=== PATIENT | male | born 1970 | race American Indian/Alaskan Native ===

== ENCOUNTER 2018-08-26 10:09 | Outpatient (CLI) | payer MEDICARE | END 2018-08-26 10:10 | disposition home or self-care (01) | LOC: WOUND 10:09 | PROVIDERS: ATTEND Surgery | DX: E11.621 Type 2 diabetes mellitus with foot ulcer (principal); L97.526 Non-pressure chronic ulcer of other part of left foot with bone involvement without evidence of necrosis; L97.512 Non-pressure chronic ulcer of other part of right foot with fat layer exposed; L84 Corns and callosities; E11.610 Type 2 diabetes mellitus with diabetic neuropathic arthropathy; E11.69 Type 2 diabetes mellitus with other specified complication; M86.672 Other chronic osteomyelitis, left ankle and foot; M86.671 Other chronic osteomyelitis, right ankle and foot; I10 Essential (primary) hypertension | CPT/HCPCS: 11042; 11045; 87075; 87116; G0463; 87076; 87186; 99205 ==

== ENCOUNTER 2018-09-02 10:30 | Outpatient (CLI) | payer MEDICARE ==
--- NOTE | 2018-09-02 11:08 | XRay Report ---
ROUTINE CHEST, TWO VIEWS: HISTORY: Type 2 diabetes mellitus with skin complications. The trachea, heart, mediastinal contour, lung wood and bony thorax are unremarkable. IMPRESSION: Unremarkable chest x-ray.
== END 2018-09-02 10:31 | disposition home or self-care (01) ==
LOC: XRAY 10:30
PROVIDERS: ATTEND Surgery
DX: E11.621 Type 2 diabetes mellitus with foot ulcer (principal); M86.672 Other chronic osteomyelitis, left ankle and foot
CPT/HCPCS: 71046

== ENCOUNTER 2018-09-02 10:56 | Outpatient (CLI) | payer MEDICARE | END 2018-09-02 10:57 | disposition home or self-care (01) | LOC: WOUND 10:56 | CPT/HCPCS: 71046 ==

== ENCOUNTER 2018-09-09 10:05 | Outpatient (CLI) | payer MEDICARE ==
[2018-09-09] MEDS ORDERED: SILVER NITRATE TP ONE (13:46)
[2018-09-09] MEDS ORDERED: XYLOCAINE TOPICAL 4% TP ONE (13:46)
== END 2018-09-09 10:06 | disposition home or self-care (01) ==
LOC: WOUND 10:05
PROVIDERS: ATTEND Surgery
DX: E11.621 Type 2 diabetes mellitus with foot ulcer (principal); L97.522 Non-pressure chronic ulcer of other part of left foot with fat layer exposed; E11.69 Type 2 diabetes mellitus with other specified complication; M86.372 Chronic multifocal osteomyelitis, left ankle and foot; E11.610 Type 2 diabetes mellitus with diabetic neuropathic arthropathy; I10 Essential (primary) hypertension
CPT/HCPCS: 11042; 11045; 82962; G0277; 99183

== ENCOUNTER 2018-09-10 10:04 | Outpatient (CLI) | payer MEDICARE | END 2018-09-10 10:05 | disposition home or self-care (01) | LOC: WOUND 10:04 | PROVIDERS: ATTEND Surgery | DX: E11.621 Type 2 diabetes mellitus with foot ulcer (principal); L97.521 Non-pressure chronic ulcer of other part of left foot limited to breakdown of skin; I10 Essential (primary) hypertension | CPT/HCPCS: 82962; G0277; 99183 ==

== ENCOUNTER 2018-09-12 10:31 | Outpatient (CLI) | payer MEDICARE | END 2018-09-12 10:32 | disposition home or self-care (01) | LOC: WOUND 10:31 | PROVIDERS: ATTEND Surgery | DX: E11.621 Type 2 diabetes mellitus with foot ulcer (principal); L97.521 Non-pressure chronic ulcer of other part of left foot limited to breakdown of skin; E11.69 Type 2 diabetes mellitus with other specified complication; M86.672 Other chronic osteomyelitis, left ankle and foot; I10 Essential (primary) hypertension | CPT/HCPCS: 82962; G0277; 99183 ==

== ENCOUNTER 2018-09-13 10:20 | Outpatient (CLI) | payer MEDICARE | END 2018-09-13 10:21 | disposition home or self-care (01) | LOC: WOUND 10:20 | PROVIDERS: ATTEND Surgery | DX: E11.621 Type 2 diabetes mellitus with foot ulcer (principal); L97.521 Non-pressure chronic ulcer of other part of left foot limited to breakdown of skin; E11.69 Type 2 diabetes mellitus with other specified complication; M86.672 Other chronic osteomyelitis, left ankle and foot; I10 Essential (primary) hypertension | CPT/HCPCS: 82962; G0277; 99183 ==

== ENCOUNTER 2018-09-16 10:42 | Outpatient (CLI) | payer MEDICARE ==
[2018-09-16] MEDS ORDERED: XYLOCAINE TOPICAL 4% TP ONE (13:13)
== END 2018-09-16 10:43 | disposition home or self-care (01) ==
LOC: WOUND 10:42
PROVIDERS: ATTEND Surgery
DX: E11.621 Type 2 diabetes mellitus with foot ulcer (principal); L97.522 Non-pressure chronic ulcer of other part of left foot with fat layer exposed; E11.69 Type 2 diabetes mellitus with other specified complication; M86.372 Chronic multifocal osteomyelitis, left ankle and foot; E11.610 Type 2 diabetes mellitus with diabetic neuropathic arthropathy; I10 Essential (primary) hypertension
CPT/HCPCS: 11042; 11045; 82962; 97605; G0277; 99183

== ENCOUNTER 2018-09-17 10:01 | Outpatient (CLI) | payer MEDICARE | END 2018-09-17 10:02 | disposition home or self-care (01) | LOC: WOUND 10:01 | PROVIDERS: ATTEND Surgery | DX: E11.621 Type 2 diabetes mellitus with foot ulcer (principal); L97.522 Non-pressure chronic ulcer of other part of left foot with fat layer exposed; E11.69 Type 2 diabetes mellitus with other specified complication; M86.372 Chronic multifocal osteomyelitis, left ankle and foot; E11.610 Type 2 diabetes mellitus with diabetic neuropathic arthropathy; I10 Essential (primary) hypertension | CPT/HCPCS: 82962; G0277; 99183 ==

== ENCOUNTER 2018-09-18 09:47 | Outpatient (CLI) | payer MEDICARE | END 2018-09-18 09:48 | disposition home or self-care (01) | LOC: WOUND 09:47 | PROVIDERS: ATTEND Surgery | DX: E11.621 Type 2 diabetes mellitus with foot ulcer (principal); L97.511 Non-pressure chronic ulcer of other part of right foot limited to breakdown of skin; E11.69 Type 2 diabetes mellitus with other specified complication; M86.372 Chronic multifocal osteomyelitis, left ankle and foot; E11.610 Type 2 diabetes mellitus with diabetic neuropathic arthropathy; I10 Essential (primary) hypertension | CPT/HCPCS: 82962; G0277; 99183 ==

== ENCOUNTER 2018-09-19 09:42 | Outpatient (CLI) | payer MEDICARE | END 2018-09-19 09:43 | disposition home or self-care (01) | LOC: WOUND 09:42 | PROVIDERS: ATTEND Surgery | DX: E11.621 Type 2 diabetes mellitus with foot ulcer (principal); L97.522 Non-pressure chronic ulcer of other part of left foot with fat layer exposed; E11.69 Type 2 diabetes mellitus with other specified complication; M86.372 Chronic multifocal osteomyelitis, left ankle and foot; E11.610 Type 2 diabetes mellitus with diabetic neuropathic arthropathy; I10 Essential (primary) hypertension | CPT/HCPCS: 82962; G0277; 99183 ==

== ENCOUNTER 2018-09-20 07:54 | Outpatient (CLI) | payer MEDICARE | END 2018-09-20 07:55 | disposition home or self-care (01) | LOC: WOUND 07:54 | PROVIDERS: ATTEND Surgery | DX: E11.621 Type 2 diabetes mellitus with foot ulcer (principal); L97.522 Non-pressure chronic ulcer of other part of left foot with fat layer exposed; E11.69 Type 2 diabetes mellitus with other specified complication; M86.372 Chronic multifocal osteomyelitis, left ankle and foot; E11.610 Type 2 diabetes mellitus with diabetic neuropathic arthropathy; I10 Essential (primary) hypertension | CPT/HCPCS: 82962; 99183; G0277 ==

== ENCOUNTER 2018-09-23 08:06 | Outpatient (CLI) | payer MEDICARE | END 2018-09-23 08:07 | disposition home or self-care (01) | LOC: WOUND 08:06 | PROVIDERS: ATTEND Surgery | DX: E11.621 Type 2 diabetes mellitus with foot ulcer (principal); L97.522 Non-pressure chronic ulcer of other part of left foot with fat layer exposed; L84 Corns and callosities; E11.69 Type 2 diabetes mellitus with other specified complication; M86.372 Chronic multifocal osteomyelitis, left ankle and foot; E11.610 Type 2 diabetes mellitus with diabetic neuropathic arthropathy; I10 Essential (primary) hypertension; S91.301A Unspecified open wound, right foot, initial encounter; X58.XXXA Exposure to other specified factors, initial encounter; Y93.89 Activity, other specified; Y92.89 Other specified places as the place of occurrence of the external cause; Y99.8 Other external cause status | CPT/HCPCS: 11042; 11045; 82962; 97605; G0277; 99183 ==

== ENCOUNTER 2018-09-24 08:03 | Outpatient (CLI) | payer MEDICARE | END 2018-09-24 08:04 | disposition home or self-care (01) | LOC: WOUND 08:03 | PROVIDERS: ATTEND Surgery | DX: E11.621 Type 2 diabetes mellitus with foot ulcer (principal); L97.511 Non-pressure chronic ulcer of other part of right foot limited to breakdown of skin; E11.610 Type 2 diabetes mellitus with diabetic neuropathic arthropathy; E11.69 Type 2 diabetes mellitus with other specified complication; M86.372 Chronic multifocal osteomyelitis, left ankle and foot; I10 Essential (primary) hypertension | CPT/HCPCS: 82962; G0277; 99183 ==

== ENCOUNTER 2018-09-25 07:49 | Outpatient (CLI) | payer MEDICARE | END 2018-09-25 07:50 | disposition home or self-care (01) | LOC: WOUND 07:49 | PROVIDERS: ATTEND Surgery | DX: E11.621 Type 2 diabetes mellitus with foot ulcer (principal); L97.811 Non-pressure chronic ulcer of other part of right lower leg limited to breakdown of skin; E11.69 Type 2 diabetes mellitus with other specified complication; M86.372 Chronic multifocal osteomyelitis, left ankle and foot; E11.610 Type 2 diabetes mellitus with diabetic neuropathic arthropathy; I10 Essential (primary) hypertension | CPT/HCPCS: 82962; G0277; 99183 ==

== ENCOUNTER 2018-09-26 07:50 | Outpatient (CLI) | payer MEDICARE | END 2018-09-26 07:51 | disposition home or self-care (01) | LOC: WOUND 07:50 | PROVIDERS: ATTEND Surgery | DX: E11.621 Type 2 diabetes mellitus with foot ulcer (principal); L97.511 Non-pressure chronic ulcer of other part of right foot limited to breakdown of skin; E11.69 Type 2 diabetes mellitus with other specified complication; M86.372 Chronic multifocal osteomyelitis, left ankle and foot; E11.610 Type 2 diabetes mellitus with diabetic neuropathic arthropathy; I10 Essential (primary) hypertension | CPT/HCPCS: 82962; G0277; 99183 ==

== ENCOUNTER 2018-09-27 07:37 | Outpatient (CLI) | payer MEDICARE | END 2018-09-27 07:38 | disposition home or self-care (01) | LOC: WOUND 07:37 | PROVIDERS: ATTEND Surgery | DX: E11.621 Type 2 diabetes mellitus with foot ulcer (principal); L97.511 Non-pressure chronic ulcer of other part of right foot limited to breakdown of skin; E11.69 Type 2 diabetes mellitus with other specified complication; M86.372 Chronic multifocal osteomyelitis, left ankle and foot; E11.610 Type 2 diabetes mellitus with diabetic neuropathic arthropathy; I10 Essential (primary) hypertension | CPT/HCPCS: 82962; G0277; 99183 ==

== ENCOUNTER 2018-09-30 07:38 | Outpatient (CLI) | payer MEDICARE | END 2018-09-30 07:39 | disposition home or self-care (01) | LOC: WOUND 07:38 | PROVIDERS: ATTEND Surgery | DX: E11.621 Type 2 diabetes mellitus with foot ulcer (principal); L97.522 Non-pressure chronic ulcer of other part of left foot with fat layer exposed; L84 Corns and callosities; S91.301D Unspecified open wound, right foot, subsequent encounter; E11.69 Type 2 diabetes mellitus with other specified complication; M86.372 Chronic multifocal osteomyelitis, left ankle and foot; E11.610 Type 2 diabetes mellitus with diabetic neuropathic arthropathy; I10 Essential (primary) hypertension; X58.XXXD Exposure to other specified factors, subsequent encounter | CPT/HCPCS: 11042; 11045; 87075; 87116; 97605; G0277; 82962; 99183 ==

== ENCOUNTER 2018-10-01 07:49 | Outpatient (CLI) | payer MEDICARE | END 2018-10-01 07:50 | disposition home or self-care (01) | LOC: WOUND 07:49 | PROVIDERS: ATTEND Surgery | DX: E11.621 Type 2 diabetes mellitus with foot ulcer (principal); L97.511 Non-pressure chronic ulcer of other part of right foot limited to breakdown of skin; E11.69 Type 2 diabetes mellitus with other specified complication; M86.372 Chronic multifocal osteomyelitis, left ankle and foot; E11.610 Type 2 diabetes mellitus with diabetic neuropathic arthropathy; I10 Essential (primary) hypertension | CPT/HCPCS: 82962; 99183; G0277 ==

== ENCOUNTER 2018-10-02 07:51 | Outpatient (CLI) | payer MEDICARE | END 2018-10-02 07:52 | disposition home or self-care (01) | LOC: WOUND 07:51 | PROVIDERS: ATTEND Surgery | DX: E11.621 Type 2 diabetes mellitus with foot ulcer (principal); L97.511 Non-pressure chronic ulcer of other part of right foot limited to breakdown of skin; E11.69 Type 2 diabetes mellitus with other specified complication; M86.372 Chronic multifocal osteomyelitis, left ankle and foot; E11.610 Type 2 diabetes mellitus with diabetic neuropathic arthropathy; I10 Essential (primary) hypertension | CPT/HCPCS: 82962; G0277; 99183 ==

== ENCOUNTER 2018-10-03 07:50 | Outpatient (CLI) | payer MEDICARE | END 2018-10-03 07:51 | disposition home or self-care (01) | LOC: WOUND 07:50 | PROVIDERS: ATTEND Surgery | DX: E11.621 Type 2 diabetes mellitus with foot ulcer (principal); L97.511 Non-pressure chronic ulcer of other part of right foot limited to breakdown of skin; E11.69 Type 2 diabetes mellitus with other specified complication; M86.372 Chronic multifocal osteomyelitis, left ankle and foot; E11.610 Type 2 diabetes mellitus with diabetic neuropathic arthropathy; I10 Essential (primary) hypertension | CPT/HCPCS: 82962; G0277; 99183 ==

== ENCOUNTER 2018-10-07 08:09 | Outpatient (CLI) | payer MEDICARE ==
[2018-10-07] MEDS ORDERED: XYLOCAINE TOPICAL 4% TP ONE (12:00)
[2018-10-08] MEDS ORDERED: AD OINTMENT TP SCH (10:00)
== END 2018-10-07 08:10 | disposition home or self-care (01) ==
LOC: WOUND 08:09
PROVIDERS: ATTEND Surgery
DX: E11.621 Type 2 diabetes mellitus with foot ulcer (principal); L97.522 Non-pressure chronic ulcer of other part of left foot with fat layer exposed; E11.69 Type 2 diabetes mellitus with other specified complication; M86.372 Chronic multifocal osteomyelitis, left ankle and foot; E11.610 Type 2 diabetes mellitus with diabetic neuropathic arthropathy; I10 Essential (primary) hypertension
CPT/HCPCS: 11042; 11045; 82962; G0277; 99183

== ENCOUNTER 2018-10-08 07:55 | Outpatient (CLI) | payer MEDICARE | END 2018-10-08 07:56 | disposition home or self-care (01) | LOC: WOUND 07:55 | PROVIDERS: ATTEND Surgery | DX: E11.621 Type 2 diabetes mellitus with foot ulcer (principal); L97.511 Non-pressure chronic ulcer of other part of right foot limited to breakdown of skin; E11.69 Type 2 diabetes mellitus with other specified complication; M86.372 Chronic multifocal osteomyelitis, left ankle and foot; E11.610 Type 2 diabetes mellitus with diabetic neuropathic arthropathy; I10 Essential (primary) hypertension | CPT/HCPCS: 82962; G0277; 99183 ==

== ENCOUNTER 2018-10-09 07:46 | Outpatient (CLI) | payer MEDICARE | END 2018-10-09 07:47 | disposition home or self-care (01) | LOC: WOUND 07:46 | PROVIDERS: ATTEND Surgery | DX: E11.621 Type 2 diabetes mellitus with foot ulcer (principal); L97.511 Non-pressure chronic ulcer of other part of right foot limited to breakdown of skin; E11.69 Type 2 diabetes mellitus with other specified complication; M86.372 Chronic multifocal osteomyelitis, left ankle and foot; E11.610 Type 2 diabetes mellitus with diabetic neuropathic arthropathy; I10 Essential (primary) hypertension | CPT/HCPCS: 82962; G0277; 99183 ==

== ENCOUNTER 2018-10-14 07:50 | Outpatient (CLI) | payer MEDICARE ==
[2018-10-14] MEDS ORDERED: SILVER NITRATE TP ONE (11:47)
== END 2018-10-14 07:51 | disposition home or self-care (01) ==
LOC: WOUND 07:50
PROVIDERS: ATTEND Surgery
DX: E11.621 Type 2 diabetes mellitus with foot ulcer (principal); L97.511 Non-pressure chronic ulcer of other part of right foot limited to breakdown of skin; E11.69 Type 2 diabetes mellitus with other specified complication; M86.372 Chronic multifocal osteomyelitis, left ankle and foot; E11.610 Type 2 diabetes mellitus with diabetic neuropathic arthropathy; I10 Essential (primary) hypertension
CPT/HCPCS: 11042; 11045; 82962; G0277; 99183

== ENCOUNTER 2018-10-17 07:45 | Outpatient (CLI) | payer MEDICARE | END 2018-10-17 07:46 | disposition home or self-care (01) | LOC: WOUND 07:45 | PROVIDERS: ATTEND Surgery | DX: E11.621 Type 2 diabetes mellitus with foot ulcer (principal); L97.511 Non-pressure chronic ulcer of other part of right foot limited to breakdown of skin; E11.610 Type 2 diabetes mellitus with diabetic neuropathic arthropathy; E11.69 Type 2 diabetes mellitus with other specified complication; M86.372 Chronic multifocal osteomyelitis, left ankle and foot; I10 Essential (primary) hypertension | CPT/HCPCS: 82962; 99183; G0277 ==

== ENCOUNTER 2018-10-18 07:52 | Outpatient (CLI) | payer MEDICARE | END 2018-10-18 07:53 | disposition home or self-care (01) | LOC: WOUND 07:52 | PROVIDERS: ATTEND Surgery | DX: E11.621 Type 2 diabetes mellitus with foot ulcer (principal); L97.521 Non-pressure chronic ulcer of other part of left foot limited to breakdown of skin; E11.69 Type 2 diabetes mellitus with other specified complication; M86.372 Chronic multifocal osteomyelitis, left ankle and foot; I10 Essential (primary) hypertension | CPT/HCPCS: 82962; 99183; G0277 ==

== ENCOUNTER 2018-10-22 07:44 | Outpatient (CLI) | payer MEDICARE | END 2018-10-22 07:45 | disposition home or self-care (01) | LOC: WOUND 07:44 | PROVIDERS: ATTEND Surgery | DX: E11.621 Type 2 diabetes mellitus with foot ulcer (principal); L97.521 Non-pressure chronic ulcer of other part of left foot limited to breakdown of skin; E11.69 Type 2 diabetes mellitus with other specified complication; M86.372 Chronic multifocal osteomyelitis, left ankle and foot; E11.610 Type 2 diabetes mellitus with diabetic neuropathic arthropathy; I10 Essential (primary) hypertension | CPT/HCPCS: 82962; G0277; 99183 ==

== ENCOUNTER 2018-10-23 08:24 | Outpatient (CLI) | payer MEDICARE | END 2018-10-23 08:25 | disposition home or self-care (01) | LOC: WOUND 08:24 | PROVIDERS: ATTEND Surgery | DX: E11.621 Type 2 diabetes mellitus with foot ulcer (principal); L97.521 Non-pressure chronic ulcer of other part of left foot limited to breakdown of skin; E11.610 Type 2 diabetes mellitus with diabetic neuropathic arthropathy; E11.69 Type 2 diabetes mellitus with other specified complication; M86.372 Chronic multifocal osteomyelitis, left ankle and foot; I10 Essential (primary) hypertension | CPT/HCPCS: 82962; G0277; 99183 ==

== ENCOUNTER 2018-10-24 07:48 | Outpatient (CLI) | payer MEDICARE | END 2018-10-24 07:49 | disposition home or self-care (01) | LOC: WOUND 07:48 | PROVIDERS: ATTEND Internal Medicine | DX: E11.621 Type 2 diabetes mellitus with foot ulcer (principal); L97.521 Non-pressure chronic ulcer of other part of left foot limited to breakdown of skin; E11.69 Type 2 diabetes mellitus with other specified complication; M86.372 Chronic multifocal osteomyelitis, left ankle and foot; E11.610 Type 2 diabetes mellitus with diabetic neuropathic arthropathy; I10 Essential (primary) hypertension | CPT/HCPCS: 82962; G0277; 99183 ==

== ENCOUNTER 2018-10-25 07:56 | Outpatient (CLI) | payer MEDICARE | END 2018-10-25 07:57 | disposition home or self-care (01) | LOC: WOUND 07:56 | PROVIDERS: ATTEND Surgery | DX: E11.621 Type 2 diabetes mellitus with foot ulcer (principal); L97.521 Non-pressure chronic ulcer of other part of left foot limited to breakdown of skin; E11.69 Type 2 diabetes mellitus with other specified complication; M86.372 Chronic multifocal osteomyelitis, left ankle and foot; I10 Essential (primary) hypertension; E11.610 Type 2 diabetes mellitus with diabetic neuropathic arthropathy | CPT/HCPCS: 82962; G0277; 99183 ==

== ENCOUNTER 2018-10-28 07:56 | Outpatient (CLI) | payer MEDICARE ==
[2018-10-28] MEDS ORDERED: XYLOCAINE TOPICAL 4% TP ONE (10:35)
[2018-10-28] MEDS ORDERED: SILVER NITRATE TP ONE (10:36)
== END 2018-10-28 07:57 | disposition home or self-care (01) ==
LOC: WOUND 07:56
PROVIDERS: ATTEND Surgery
DX: E11.621 Type 2 diabetes mellitus with foot ulcer (principal); L97.521 Non-pressure chronic ulcer of other part of left foot limited to breakdown of skin; E11.610 Type 2 diabetes mellitus with diabetic neuropathic arthropathy; E11.69 Type 2 diabetes mellitus with other specified complication; M86.372 Chronic multifocal osteomyelitis, left ankle and foot; I10 Essential (primary) hypertension
CPT/HCPCS: 11042; 11045; 82962; G0277; 99183

== ENCOUNTER 2018-10-29 07:50 | Outpatient (CLI) | payer MEDICARE | END 2018-10-29 07:51 | disposition home or self-care (01) | LOC: WOUND 07:50 | PROVIDERS: ATTEND Surgery | DX: E11.621 Type 2 diabetes mellitus with foot ulcer (principal); L97.521 Non-pressure chronic ulcer of other part of left foot limited to breakdown of skin; E11.610 Type 2 diabetes mellitus with diabetic neuropathic arthropathy; E11.69 Type 2 diabetes mellitus with other specified complication; M86.372 Chronic multifocal osteomyelitis, left ankle and foot; I10 Essential (primary) hypertension | CPT/HCPCS: 82962; 99183; G0277 ==

== ENCOUNTER 2018-10-30 07:53 | Outpatient (CLI) | payer MEDICARE | END 2018-10-30 07:54 | disposition home or self-care (01) | LOC: WOUND 07:53 | PROVIDERS: ATTEND Surgery | DX: E11.621 Type 2 diabetes mellitus with foot ulcer (principal); L97.521 Non-pressure chronic ulcer of other part of left foot limited to breakdown of skin; E11.69 Type 2 diabetes mellitus with other specified complication; M86.372 Chronic multifocal osteomyelitis, left ankle and foot; E11.610 Type 2 diabetes mellitus with diabetic neuropathic arthropathy; I10 Essential (primary) hypertension | CPT/HCPCS: 82962; G0277; 99183 ==

== ENCOUNTER 2018-11-01 07:47 | Outpatient (CLI) | payer MEDICARE | END 2018-11-01 07:48 | disposition home or self-care (01) | LOC: WOUND 07:47 | PROVIDERS: ATTEND Surgery | DX: E11.621 Type 2 diabetes mellitus with foot ulcer (principal); L97.521 Non-pressure chronic ulcer of other part of left foot limited to breakdown of skin; E11.69 Type 2 diabetes mellitus with other specified complication; M86.372 Chronic multifocal osteomyelitis, left ankle and foot; E11.610 Type 2 diabetes mellitus with diabetic neuropathic arthropathy; I10 Essential (primary) hypertension | CPT/HCPCS: 82962; G0277; 99183 ==

== ENCOUNTER 2018-11-04 07:47 | Outpatient (CLI) | payer MEDICARE ==
[2018-11-04] MEDS ORDERED: SILVER NITRATE TP ONE (11:00)
[2018-11-04] MEDS ORDERED: XYLOCAINE TOPICAL 4% TP ONE (11:00)
== END 2018-11-04 07:48 | disposition home or self-care (01) ==
LOC: WOUND 07:47
PROVIDERS: ATTEND Surgery
DX: E11.621 Type 2 diabetes mellitus with foot ulcer (principal); L97.521 Non-pressure chronic ulcer of other part of left foot limited to breakdown of skin; E11.69 Type 2 diabetes mellitus with other specified complication; M86.372 Chronic multifocal osteomyelitis, left ankle and foot; E11.610 Type 2 diabetes mellitus with diabetic neuropathic arthropathy; I10 Essential (primary) hypertension
CPT/HCPCS: 11042; 11045; 82962; G0277; 99183

== ENCOUNTER 2018-11-18 10:29 | Outpatient (CLI) | payer MEDICARE ==
[2018-11-18] MEDS ORDERED: XYLOCAINE TOPICAL 4% TP ONE (10:37)
== END 2018-11-18 10:30 | disposition home or self-care (01) ==
LOC: WOUND 10:29
PROVIDERS: ATTEND Surgery
DX: E11.621 Type 2 diabetes mellitus with foot ulcer (principal); L97.522 Non-pressure chronic ulcer of other part of left foot with fat layer exposed; E11.610 Type 2 diabetes mellitus with diabetic neuropathic arthropathy; E11.69 Type 2 diabetes mellitus with other specified complication; M86.372 Chronic multifocal osteomyelitis, left ankle and foot; I10 Essential (primary) hypertension

== ENCOUNTER 2018-11-25 10:34 | Outpatient (CLI) | payer MEDICARE ==
[2018-11-25] MEDS ORDERED: XYLOCAINE TOPICAL 4% TP ONE (11:20)
[2018-11-25] MEDS ORDERED: SILVER NITRATE TP ONE (11:20)
== END 2018-11-25 10:35 | disposition home or self-care (01) ==
LOC: WOUND 10:34
PROVIDERS: ATTEND Surgery
DX: E11.621 Type 2 diabetes mellitus with foot ulcer (principal); L97.522 Non-pressure chronic ulcer of other part of left foot with fat layer exposed; L84 Corns and callosities; E11.610 Type 2 diabetes mellitus with diabetic neuropathic arthropathy; E11.69 Type 2 diabetes mellitus with other specified complication; M86.9 Osteomyelitis, unspecified; I10 Essential (primary) hypertension

== ENCOUNTER 2018-12-03 10:59 | Outpatient (CLI) | payer MEDICARE ==
[2018-12-03] MEDS ORDERED: XYLOCAINE TOPICAL 4% TP ONE (11:30)
== END 2018-12-03 11:00 | disposition home or self-care (01) ==
LOC: WOUND 10:59
PROVIDERS: ATTEND Surgery
DX: E11.621 Type 2 diabetes mellitus with foot ulcer (principal); L97.522 Non-pressure chronic ulcer of other part of left foot with fat layer exposed; L84 Corns and callosities; E11.69 Type 2 diabetes mellitus with other specified complication; M86.372 Chronic multifocal osteomyelitis, left ankle and foot; I10 Essential (primary) hypertension

== ENCOUNTER 2018-12-17 10:36 | Outpatient (CLI) | payer MEDICARE ==
[2018-12-17] MEDS ORDERED: SILVER NITRATE TP ONE (11:45)
== END 2018-12-17 10:37 | disposition home or self-care (01) ==
LOC: WOUND 10:36
PROVIDERS: ATTEND Surgery
DX: E11.621 Type 2 diabetes mellitus with foot ulcer (principal); L97.522 Non-pressure chronic ulcer of other part of left foot with fat layer exposed; E11.69 Type 2 diabetes mellitus with other specified complication; M86.372 Chronic multifocal osteomyelitis, left ankle and foot; E11.610 Type 2 diabetes mellitus with diabetic neuropathic arthropathy; I10 Essential (primary) hypertension

== ENCOUNTER 2018-12-23 10:52 | Outpatient (CLI) | payer MEDICARE ==
[2018-12-23] MEDS ORDERED: SILVER NITRATE TP ONE (11:00)
[2018-12-23] MEDS ORDERED: XYLOCAINE TOPICAL 4% TP ONE (11:00)
== END 2018-12-23 10:53 | disposition home or self-care (01) ==
LOC: WOUND 10:52
PROVIDERS: ATTEND Surgery
DX: E11.621 Type 2 diabetes mellitus with foot ulcer (principal); L97.522 Non-pressure chronic ulcer of other part of left foot with fat layer exposed; E11.69 Type 2 diabetes mellitus with other specified complication; M86.372 Chronic multifocal osteomyelitis, left ankle and foot; E11.610 Type 2 diabetes mellitus with diabetic neuropathic arthropathy; I10 Essential (primary) hypertension

== ENCOUNTER 2019-01-01 11:03 | Outpatient (CLI) | payer MEDICARE ==
[2019-01-01] MEDS ORDERED: XYLOCAINE TOPICAL 4% TP ONE (11:16)
[2019-01-01] MEDS ORDERED: SILVER NITRATE TP ONE (11:16)
== END 2019-01-01 11:04 | disposition home or self-care (01) ==
LOC: WOUND 11:03
PROVIDERS: ATTEND Surgery
DX: E11.621 Type 2 diabetes mellitus with foot ulcer (principal); L97.522 Non-pressure chronic ulcer of other part of left foot with fat layer exposed; E11.69 Type 2 diabetes mellitus with other specified complication; M86.372 Chronic multifocal osteomyelitis, left ankle and foot; E11.610 Type 2 diabetes mellitus with diabetic neuropathic arthropathy; I10 Essential (primary) hypertension

== ENCOUNTER 2019-01-07 09:01 | Outpatient (CLI) | payer MEDICARE ==
[2019-01-07] MEDS ORDERED: SILVER NITRATE TP ONE (09:07)
[2019-01-07] MEDS ORDERED: AD OINTMENT TP PRN (09:07)
== END 2019-01-07 09:02 | disposition home or self-care (01) ==
LOC: WOUND 09:01
PROVIDERS: ATTEND Surgery
DX: E11.621 Type 2 diabetes mellitus with foot ulcer (principal); L97.522 Non-pressure chronic ulcer of other part of left foot with fat layer exposed; L84 Corns and callosities; E11.69 Type 2 diabetes mellitus with other specified complication; M86.372 Chronic multifocal osteomyelitis, left ankle and foot; I10 Essential (primary) hypertension
CPT/HCPCS: A6250

== ENCOUNTER 2019-01-14 09:04 | Outpatient (CLI) | payer MEDICARE ==
[2019-01-14] MEDS ORDERED: SILVER NITRATE TP ONE (09:17)
[2019-01-14] MEDS ORDERED: AD OINTMENT TP PRN (09:56)
== END 2019-01-14 09:05 | disposition home or self-care (01) ==
LOC: WOUND 09:04
PROVIDERS: ATTEND Surgery
DX: E11.621 Type 2 diabetes mellitus with foot ulcer (principal); L97.522 Non-pressure chronic ulcer of other part of left foot with fat layer exposed; L84 Corns and callosities; E11.69 Type 2 diabetes mellitus with other specified complication; M86.372 Chronic multifocal osteomyelitis, left ankle and foot; I10 Essential (primary) hypertension

== ENCOUNTER 2019-01-27 09:08 | Outpatient (CLI) | payer MEDICARE ==
[2019-01-27] MEDS ORDERED: SILVER NITRATE TP ONE (09:49)
[2019-01-27] MEDS ORDERED: AD OINTMENT TP PRN (10:13)
== END 2019-01-27 09:09 | disposition home or self-care (01) ==
LOC: WOUND 09:08
PROVIDERS: ATTEND Surgery
DX: E11.621 Type 2 diabetes mellitus with foot ulcer (principal); L97.522 Non-pressure chronic ulcer of other part of left foot with fat layer exposed; L84 Corns and callosities; E11.69 Type 2 diabetes mellitus with other specified complication; M86.372 Chronic multifocal osteomyelitis, left ankle and foot; I10 Essential (primary) hypertension
CPT/HCPCS: A6250

== ENCOUNTER 2019-02-10 09:04 | Outpatient (CLI) | payer MEDICARE ==
[2019-02-10] MEDS ORDERED: SILVER NITRATE TP ONE (10:00)
[2019-02-10] MEDS ORDERED: AD OINTMENT TP PRN (10:30)
== END 2019-02-10 09:05 | disposition home or self-care (01) ==
LOC: WOUND 09:04
PROVIDERS: ATTEND Surgery
DX: E11.621 Type 2 diabetes mellitus with foot ulcer (principal); L97.522 Non-pressure chronic ulcer of other part of left foot with fat layer exposed; L84 Corns and callosities; E11.69 Type 2 diabetes mellitus with other specified complication; M86.372 Chronic multifocal osteomyelitis, left ankle and foot; I10 Essential (primary) hypertension

== ENCOUNTER 2019-02-24 09:04 | Outpatient (CLI) | payer MEDICARE ==
[2019-02-24] MEDS ORDERED: AD OINTMENT TP PRN (10:30)
[2019-02-24] MEDS ORDERED: SILVER NITRATE TP ONE (10:30)
== END 2019-02-24 09:05 | disposition home or self-care (01) ==
LOC: WOUND 09:04
PROVIDERS: ATTEND Surgery
DX: E11.621 Type 2 diabetes mellitus with foot ulcer (principal); L97.522 Non-pressure chronic ulcer of other part of left foot with fat layer exposed; L84 Corns and callosities; E11.69 Type 2 diabetes mellitus with other specified complication; M86.372 Chronic multifocal osteomyelitis, left ankle and foot; I10 Essential (primary) hypertension

== ENCOUNTER 2019-03-03 08:33 | Outpatient (CLI) | payer MEDICARE ==
[2019-03-03] MEDS ORDERED: XYLOCAINE TOPICAL 4% TP ONE (08:59)
[2019-03-03] MEDS ORDERED: SILVER NITRATE TP ONE (10:00)
== END 2019-03-03 08:34 | disposition home or self-care (01) ==
LOC: WOUND 08:33
PROVIDERS: ATTEND Surgery
DX: E11.621 Type 2 diabetes mellitus with foot ulcer (principal); L97.522 Non-pressure chronic ulcer of other part of left foot with fat layer exposed; L84 Corns and callosities; E11.69 Type 2 diabetes mellitus with other specified complication; M86.372 Chronic multifocal osteomyelitis, left ankle and foot; I10 Essential (primary) hypertension

== ENCOUNTER 2019-03-10 09:05 | Outpatient (CLI) | payer MEDICARE ==
[2019-03-10] MEDS ORDERED: SILVER NITRATE TP NR (10:00)
[2019-03-10] MEDS ORDERED: XYLOCAINE TOPICAL 4% TP ONE (10:00)
[2019-03-10] MEDS ORDERED: SILVER NITRATE TP ONE (10:30)
== END 2019-03-10 09:06 | disposition home or self-care (01) ==
LOC: WOUND 09:05
PROVIDERS: ATTEND Surgery
DX: E11.621 Type 2 diabetes mellitus with foot ulcer (principal); L97.522 Non-pressure chronic ulcer of other part of left foot with fat layer exposed; E11.69 Type 2 diabetes mellitus with other specified complication; M86.372 Chronic multifocal osteomyelitis, left ankle and foot; I10 Essential (primary) hypertension

== ENCOUNTER 2019-03-17 08:56 | Outpatient (CLI) | payer MEDICARE | END 2019-03-17 08:57 | disposition home or self-care (01) | LOC: WOUND 08:56 | PROVIDERS: ATTEND Surgery | DX: E11.621 Type 2 diabetes mellitus with foot ulcer (principal); L97.522 Non-pressure chronic ulcer of other part of left foot with fat layer exposed; L84 Corns and callosities; E11.610 Type 2 diabetes mellitus with diabetic neuropathic arthropathy; E11.69 Type 2 diabetes mellitus with other specified complication; M86.372 Chronic multifocal osteomyelitis, left ankle and foot; I10 Essential (primary) hypertension ==

== ENCOUNTER 2019-03-27 09:22 | Outpatient (CLI) | payer MEDICARE | END 2019-03-27 09:23 | disposition home or self-care (01) | LOC: WOUND 09:22 | PROVIDERS: ATTEND Surgery | DX: E11.621 Type 2 diabetes mellitus with foot ulcer (principal); L97.522 Non-pressure chronic ulcer of other part of left foot with fat layer exposed; L84 Corns and callosities; E11.69 Type 2 diabetes mellitus with other specified complication; M86.372 Chronic multifocal osteomyelitis, left ankle and foot; I10 Essential (primary) hypertension ==

== ENCOUNTER 2019-03-31 09:10 | Outpatient (CLI) | payer MEDICARE | END 2019-03-31 09:11 | disposition home or self-care (01) | LOC: WOUND 09:10 | PROVIDERS: ATTEND Surgery | DX: E11.621 Type 2 diabetes mellitus with foot ulcer (principal); L97.522 Non-pressure chronic ulcer of other part of left foot with fat layer exposed; L84 Corns and callosities; E11.69 Type 2 diabetes mellitus with other specified complication; M86.372 Chronic multifocal osteomyelitis, left ankle and foot; I10 Essential (primary) hypertension ==

== ENCOUNTER 2019-04-21 09:10 | Outpatient (CLI) | payer MEDICARE ==
[2019-04-21] MEDS ORDERED: LIDOCAINE (4%) 40 MG/ML TOPICAL SOLN 50 ML BOTTLE TP ONE (09:30)
[2019-04-21] MEDS ORDERED: SILVER NITRATE APPLICATOR 1 EA TP ONE (09:30)
== END 2019-04-21 09:11 | disposition home or self-care (01) ==
LOC: WOUND 09:10
PROVIDERS: ATTEND Surgery
DX: E11.621 Type 2 diabetes mellitus with foot ulcer (principal); L97.522 Non-pressure chronic ulcer of other part of left foot with fat layer exposed; L84 Corns and callosities; E11.69 Type 2 diabetes mellitus with other specified complication; M86.372 Chronic multifocal osteomyelitis, left ankle and foot; I10 Essential (primary) hypertension
CPT/HCPCS: 36415; 80048; 80061; 82306; 83036; 85025; 86140

== ENCOUNTER 2019-04-21 10:30 | Outpatient (CLI) | payer MEDICARE ==
[2019-04-21 11:31] LABS: Basophils # (Auto) 0.1 K/mm3 (0.0-0.1); Basophils % (Auto) 0.9 % (0.0-1.8); Eosinophils # (Auto) 0.1 K/mm3 (0.0-0.4); Eosinophils % (Auto) 2.2 % (0.0-4.3); Hematocrit 37.8 % (35.5-45.6); Hemoglobin 11.9 gm/dl (11.8-15.2); Lymphocytes # (Auto) 1.7 K/mm3 (1.2-5.4); Lymphocytes % (Auto) 25.6 % (13.4-35.0); Mean Corpuscular HGB Conc 32 % (32-34); Mean Corpuscular Volume 78 fl (84-94); Monocytes # (Auto) 0.6 K/mm3 (0.0-0.8); Monocytes % (Auto) 9.2 % (0.0-7.3); Platelet Count 268 K/mm3 (140-440); Red Blood Count 4.87 M/mm3 (3.65-5.03); Red Cell Distribution Width 15.1 % (13.2-15.2)
[2019-04-21 11:45] LABS: BUN/Creatinine Ratio 11; Blood Urea Nitrogen 9 mg/dL (9-20); Calcium 9.1 mg/dL (8.4-10.2); Chol/HDL Ratio 4.29 %; HDL Cholesterol 34 mg/dL (40-59); Hemolysis Index 1; LDL Cholesterol,Direct 96 mg/dL (50-130)
[2019-04-24 11:51] LABS: Vitamin D, 25-OH, D2 5 ng/mL
== END 2019-04-21 10:31 | disposition home or self-care (01) ==
LOC: LAB 10:30
PROVIDERS: ATTEND Internal Medicine
DX: E11.621 Type 2 diabetes mellitus with foot ulcer (principal); E78.5 Hyperlipidemia, unspecified; D50.9 Iron deficiency anemia, unspecified; E55.9 Vitamin D deficiency, unspecified; M86.9 Osteomyelitis, unspecified
CPT/HCPCS: 36415; 80048; 80061; 82306; 83036; 85025; 86140

== ENCOUNTER 2019-04-28 09:10 | Outpatient (CLI) | payer MEDICARE | END 2019-04-28 09:11 | disposition home or self-care (01) | LOC: WOUND 09:10 | PROVIDERS: ATTEND Surgery | DX: E11.621 Type 2 diabetes mellitus with foot ulcer (principal); L97.522 Non-pressure chronic ulcer of other part of left foot with fat layer exposed; L84 Corns and callosities; E11.69 Type 2 diabetes mellitus with other specified complication; M86.372 Chronic multifocal osteomyelitis, left ankle and foot; I10 Essential (primary) hypertension ==

== ENCOUNTER 2019-05-13 09:04 | Outpatient (CLI) | payer MEDICARE ==
[2019-05-13] MEDS ORDERED: SILVER NITRATE TP ONE (09:22)
[2019-05-13] MEDS ORDERED: AD OINTMENT TP PRN (09:22)
== END 2019-05-13 09:05 | disposition home or self-care (01) ==
LOC: WOUND 09:04
PROVIDERS: ATTEND Surgery
DX: E11.621 Type 2 diabetes mellitus with foot ulcer (principal); L97.522 Non-pressure chronic ulcer of other part of left foot with fat layer exposed; L84 Corns and callosities; E11.69 Type 2 diabetes mellitus with other specified complication; M86.372 Chronic multifocal osteomyelitis, left ankle and foot; I10 Essential (primary) hypertension
CPT/HCPCS: A6250

== ENCOUNTER 2019-05-27 09:01 | Outpatient (CLI) | payer MEDICARE ==
[2019-05-27] MEDS ORDERED: LIDOCAINE (4%) 40 MG/ML TOPICAL SOLN 50 ML BOTTLE TP ONE (10:00)
[2019-05-27] MEDS ORDERED: SILVER NITRATE APPLICATOR 1 EA TP ONE (10:00)
[2019-05-27] MEDS ORDERED: VITAMIN A & D OINT 56.7 GM TP SCH (11:00)
== END 2019-05-27 09:02 | disposition home or self-care (01) ==
LOC: WOUND 09:01
PROVIDERS: ATTEND Surgery
DX: E11.621 Type 2 diabetes mellitus with foot ulcer (principal); L97.522 Non-pressure chronic ulcer of other part of left foot with fat layer exposed; L84 Corns and callosities; E11.69 Type 2 diabetes mellitus with other specified complication; M86.372 Chronic multifocal osteomyelitis, left ankle and foot; I10 Essential (primary) hypertension
CPT/HCPCS: A6250

== ENCOUNTER 2019-06-02 09:02 | Outpatient (CLI) | payer MEDICARE ==
[2019-06-02] MEDS ORDERED: SILVER NITRATE APPLICATOR 1 EA TP ONE (10:00)
[2019-06-02] MEDS ORDERED: LIDOCAINE (4%) 40 MG/ML TOPICAL SOLN 50 ML BOTTLE TP ONE (10:00)
== END 2019-06-02 09:03 | disposition home or self-care (01) ==
LOC: WOUND 09:02
PROVIDERS: ATTEND Surgery
DX: E11.621 Type 2 diabetes mellitus with foot ulcer (principal); L97.522 Non-pressure chronic ulcer of other part of left foot with fat layer exposed; L84 Corns and callosities; E11.69 Type 2 diabetes mellitus with other specified complication; M86.372 Chronic multifocal osteomyelitis, left ankle and foot; I10 Essential (primary) hypertension

== ENCOUNTER 2019-06-09 08:59 | Outpatient (CLI) | payer MEDICARE ==
[2019-06-09] MEDS ORDERED: SILVER NITRATE APPLICATOR 1 EA TP ONE (09:30)
[2019-06-09] MEDS ORDERED: LIDOCAINE (4%) 40 MG/ML TOPICAL SOLN 50 ML BOTTLE TP ONE (09:30)
== END 2019-06-09 09:00 | disposition home or self-care (01) ==
LOC: WOUND 08:59
PROVIDERS: ATTEND Surgery
DX: E11.621 Type 2 diabetes mellitus with foot ulcer (principal); L97.522 Non-pressure chronic ulcer of other part of left foot with fat layer exposed; L84 Corns and callosities; E11.69 Type 2 diabetes mellitus with other specified complication; M86.372 Chronic multifocal osteomyelitis, left ankle and foot; I10 Essential (primary) hypertension

== ENCOUNTER 2019-06-16 09:43 | Outpatient (CLI) | payer MEDICARE ==
[2019-06-16] MEDS ORDERED: SILVER NITRATE APPLICATOR 1 EA TP ONE (09:54)
[2019-06-16] MEDS ORDERED: LIDOCAINE (4%) 40 MG/ML TOPICAL SOLN 50 ML BOTTLE TP ONE (09:54)
== END 2019-06-16 09:44 | disposition home or self-care (01) ==
LOC: WOUND 09:43
PROVIDERS: ATTEND Surgery
DX: E11.621 Type 2 diabetes mellitus with foot ulcer (principal); L97.522 Non-pressure chronic ulcer of other part of left foot with fat layer exposed; L84 Corns and callosities; E11.69 Type 2 diabetes mellitus with other specified complication; M86.372 Chronic multifocal osteomyelitis, left ankle and foot; I10 Essential (primary) hypertension

== ENCOUNTER 2019-06-30 09:17 | Outpatient (CLI) | payer MEDICARE ==
[2019-06-30] MEDS ORDERED: LIDOCAINE (4%) 40 MG/ML TOPICAL SOLN 50 ML BOTTLE TP ONE (10:30)
== END 2019-06-30 09:18 | disposition home or self-care (01) ==
LOC: WOUND 09:17
PROVIDERS: ATTEND Surgery
DX: E11.621 Type 2 diabetes mellitus with foot ulcer (principal); L97.522 Non-pressure chronic ulcer of other part of left foot with fat layer exposed; L84 Corns and callosities; E11.69 Type 2 diabetes mellitus with other specified complication; M86.372 Chronic multifocal osteomyelitis, left ankle and foot; I10 Essential (primary) hypertension

== ENCOUNTER 2019-07-14 09:41 | Outpatient (CLI) | payer MEDICARE ==
[2019-07-14] MEDS ORDERED: LIDOCAINE (4%) 40 MG/ML TOPICAL SOLN 50 ML BOTTLE TP ONE (11:00)
[2019-07-14] MEDS ORDERED: SILVER NITRATE APPLICATOR 1 EA TP ONE (11:30)
== END 2019-07-14 09:42 | disposition home or self-care (01) ==
LOC: WOUND 09:41
PROVIDERS: ATTEND Surgery
DX: E11.621 Type 2 diabetes mellitus with foot ulcer (principal); L97.522 Non-pressure chronic ulcer of other part of left foot with fat layer exposed; L84 Corns and callosities; E11.69 Type 2 diabetes mellitus with other specified complication; M86.372 Chronic multifocal osteomyelitis, left ankle and foot; I10 Essential (primary) hypertension

== ENCOUNTER 2019-07-21 08:52 | Outpatient (CLI) | payer MEDICARE ==
[2019-07-21] MEDS ORDERED: LIDOCAINE (4%) 40 MG/ML TOPICAL SOLN 50 ML BOTTLE TP ONE (09:30)
== END 2019-07-21 08:53 | disposition home or self-care (01) ==
LOC: WOUND 08:52
PROVIDERS: ATTEND Surgery
DX: E11.621 Type 2 diabetes mellitus with foot ulcer (principal); L97.522 Non-pressure chronic ulcer of other part of left foot with fat layer exposed; L84 Corns and callosities; E11.69 Type 2 diabetes mellitus with other specified complication; M86.372 Chronic multifocal osteomyelitis, left ankle and foot; I10 Essential (primary) hypertension

== ENCOUNTER 2019-07-28 08:06 | Outpatient (CLI) | payer MEDICARE ==
[2019-07-28] MEDS ORDERED: LIDOCAINE (4%) 40 MG/ML TOPICAL SOLN 50 ML BOTTLE TP ONE (08:50)
[2019-07-28] MEDS ORDERED: SILVER NITRATE APPLICATOR 1 EA TP ONE (10:58)
== END 2019-07-28 08:07 | disposition home or self-care (01) ==
LOC: WOUND 08:06
PROVIDERS: ATTEND Surgery
DX: E11.621 Type 2 diabetes mellitus with foot ulcer (principal); L97.522 Non-pressure chronic ulcer of other part of left foot with fat layer exposed; L84 Corns and callosities; E11.69 Type 2 diabetes mellitus with other specified complication; M86.372 Chronic multifocal osteomyelitis, left ankle and foot; I10 Essential (primary) hypertension

== ENCOUNTER 2019-08-04 09:04 | Outpatient (CLI) | payer MEDICARE ==
[2019-08-04] MEDS ORDERED: LIDOCAINE (4%) 40 MG/ML TOPICAL SOLN 50 ML BOTTLE TP ONE (10:00)
[2019-08-04] MEDS ORDERED: SILVER NITRATE APPLICATOR 1 EA TP ONE (10:00)
[2019-08-04] MEDS ORDERED: SODIUM HYPOCHLORITE, DAKIN'S FULL STRENGTH (0.5%) 473 ML TOPICAL SOLN TP ONE (10:30)
== END 2019-08-04 09:05 | disposition home or self-care (01) ==
LOC: WOUND 09:04
PROVIDERS: ATTEND Surgery
DX: E11.621 Type 2 diabetes mellitus with foot ulcer (principal); L97.522 Non-pressure chronic ulcer of other part of left foot with fat layer exposed; L84 Corns and callosities; M86.372 Chronic multifocal osteomyelitis, left ankle and foot; I10 Essential (primary) hypertension
CPT/HCPCS: 87075; 87076; 87116; 87186